=== PATIENT | female | born 1990 | race Caucasian/White ===

== ENCOUNTER 2023-04-12 23:24 | Emergency (ER) | payer OTHER ==
[2023-04-12 23:34] VITALS: BP 111/61; PULSE 77; RESP 16; TEMP 98.5; BMI 32.0
== END 2023-04-13 01:23 | disposition home or self-care (01) ==
LOC: JERFT 23:24
DX: R05.9 Cough, unspecified (principal); R09.89 Other specified symptoms and signs involving the circulatory and respiratory systems; R50.9 Fever, unspecified; U07.1 COVID-19
CPT/HCPCS: 0241U-QW; 71046-TC-FY; 99284-25

== ENCOUNTER 2024-01-28 14:49 | Emergency (ER) | payer OTHER ==
[2024-01-28 15:06] VITALS: BMI 32.3
[2024-01-28] MEDS ORDERED: ACETAMINOPHEN INJECTION 100 ML ONE (16:21)
[2024-01-28] MEDS: ACETAMINOPHEN 1000 MG/100 ML BAG IVPB ONE (16:48)
[2024-01-28 17:01] LABS: HCG,QUALITATIVE URINE Negative
[2024-01-28 17:04] LABS: EPI CELLS 13 /uL (0-25.1); HYALINE CASTS 1 /uL (0-3.1); URINE APPEARANCE CLOUDY; URINE BACTERIA 7 /uL (0-1359); URINE BILIRUBIN NEGATIVE (NEGATIVE); URINE COLOR YELLOW; URINE GLUCOSE (UA) NEGATIVE (NEGATIVE); URINE KETONE TRACE (NEGATIVE); URINE LEUK ESTERASE NEGATIVE (NEGATIVE); URINE NITRITE NEGATIVE (NEGATIVE); URINE PROTEIN NEGATIVE (NEGATIVE); URINE RBC 7 /uL (0-23.9); URINE WBC 10 /uL (0-25.8)
[2024-01-28] MEDS ORDERED: MORPHINE SULFATE 2 MG/ML SYRINGE ONE (17:51)
[2024-01-28] MEDS: morphine CARPU-JECT 2 MG/1 ML DISP.SYRIN IVPUSH ONE (17:58)
[2024-01-28 18:08] LABS: ALBUMIN 3.5 g/dl (3.4-5.0); BLOOD UREA NITROGEN 10.5 mg/dL (7-18); CALCIUM 8.9 mg/dL (8.5-10.1)
[2024-01-28 18:10] LABS: BASO % 0.5 % (0-2.0); HEMOGLOBIN 10.6 GM/dL (10.7-15.3); LYMPH % 40.6 % (8-40); MCH 26.4 pg (25.7-33.7); MCHC 33.2 g/dl (32.0-36.0); MEAN CELL VOLUME 79.5 fl (80-96); MEAN PLT VOLUME 8.4 fl (7.5-11.1); MONO % 7.9 % (3.8-10.2); PLATELET COUNT 351 10^3/uL (134-434); RBC 4.03 M/mm3 (3.60-5.2); RDW 16.8 % (11.6-15.6)
[2024-01-28 18:12] LABS: BILIRUBIN,TOTAL 0.2 mg/dL (0.2-1); CREATININE 0.5 mg/dL (0.55-1.3); TOT PROT 6.8 g/dl (6.4-8.2)
[2024-01-28 18:16] LABS: HIV INTERPRETATION NEGATIVE (NEGATIVE)
[2024-01-28 19:40] VITALS: RESP 18; TEMP 97.5
[2024-01-28] MEDS ORDERED: KETOROLAC TROMETHAMINE 15 MG/ML VIAL ONE (19:40)
[2024-01-28] MEDS: KETOROLAC TROMETHAMINE 15 MG/ML VIAL IVPUSH ONE (19:40)
[2024-01-28 21:51] VITALS: BP 123/67; PULSE 52
== END 2024-01-28 21:55 | disposition home or self-care (01) ==
LOC: JER 14:49
PROC: 3E033NZ Introduction of Analgesics, Hypnotics, Sedatives into Peripheral Vein, Percutaneous Approach (ICD-10-PCS; principal; 2024-01-28)
PROC: 3E033GC Introduction of Other Therapeutic Substance into Peripheral Vein, Percutaneous Approach (ICD-10-PCS; 2024-01-28)
PROC: 3E0333Z Introduction of Anti-inflammatory into Peripheral Vein, Percutaneous Approach (ICD-10-PCS; 2024-01-28)
PROC: 3E033NZ Introduction of Analgesics, Hypnotics, Sedatives into Peripheral Vein, Percutaneous Approach (ICD-10-PCS; 2024-01-28)
DX: S10.83XA Contusion of other specified part of neck, initial encounter (principal); S80.02XA Contusion of left knee, initial encounter; M54.6 Pain in thoracic spine; R68.84 Jaw pain; M25.511 Pain in right shoulder; R07.9 Chest pain, unspecified; Y04.0XXA Assault by unarmed brawl or fight, initial encounter
CPT/HCPCS: 36415; 70450-TC; 70486-TC; 71046-TC-FY; 72070-TC-FY; 72125-TC; 73030-TC-RT-FY; 80053; 81003; 84703; 85025; 86803; 87077; 87086; 87389; 93005; 93010; 99285-25; J0131

== ENCOUNTER 2024-07-28 06:43 | Day surgery (SDC) | payer OTHER ==
[2024-07-28 06:50] VITALS: BMI 29.4
[2024-07-28 07:25] LABS: ABSOLUTE IMMATURE GRANULOCYTES 0.02 x10^3/uL (0.0-0.031); BASOPHILS # 0.04 x10^3/uL (0.01-0.08); EOSINOPHIL % 2.2 % (0.7-5.8); EOSINOPHILS # 0.15 x10^3/uL (0.04-0.36); HEMATOCRIT 32.5 % (34.1-44.9); HEMOGLOBIN 9.9 g/dL (11.2-15.7); MCHC 30.5 g/dl (32.2-35.5); MEAN CELL VOLUME 79.3 fl (79.4-94.8); MEAN PLT VOLUME 10.6 fl (9.4-12.3); MONOCYTE # 0.37 x10^3/uL (0.24-0.86); MONOCYTE % 5.3 % (4.7-12.5); PLATELET COUNT 315 x10^3/uL (182-369)
[2024-07-28 07:49] LABS: POTASSIUM 3.8 mmol/L (3.5-5.1)
[2024-07-28 07:51] LABS: CALCIUM 9.5 mg/dL (8.5-10.1)
[2024-07-28 07:52] LABS: ALBUMIN 3.9 g/dl (3.4-5.0); BLOOD UREA NITROGEN 11.4 mg/dL (7-18); MAGNESIUM 2.2 mg/dL (1.8-2.4)
[2024-07-28 07:55] LABS: CREATININE 0.6 mg/dL (0.55-1.3)
[2024-07-28 07:56] LABS: BILIRUBIN,TOTAL 0.2 mg/dL (0.2-1)
[2024-07-28 07:57] LABS: TOT PROT 7.3 g/dl (6.4-8.2)
[2024-07-28 08:00] LABS: INR 1.09 (0.83-1.09)
[2024-07-28 08:03] LABS: ACTIVATED PTT 27.4 SECONDS (25.2-36.5)
[2024-07-28 09:14] LABS: ABSOLUTE IMMATURE GRANULOCYTES 0.02 x10^3/uL (0.0-0.031); BASOPHILS # 0.03 x10^3/uL (0.01-0.08); EOSINOPHIL % 1.7 % (0.7-5.8); EOSINOPHILS # 0.11 x10^3/uL (0.04-0.36); HEMATOCRIT 29.4 % (34.1-44.9); MCHC 30.6 g/dl (32.2-35.5); MONOCYTE # 0.42 x10^3/uL (0.24-0.86); MONOCYTE % 6.5 % (4.7-12.5); PLATELET COUNT 271 x10^3/uL (182-369)
[2024-07-28 12:51] LABS: ABSOLUTE IMMATURE GRANULOCYTES 0.01 x10^3/uL (0.0-0.031); BASOPHILS # 0.03 x10^3/uL (0.01-0.08); EOSINOPHIL % 1.6 % (0.7-5.8); EOSINOPHILS # 0.09 x10^3/uL (0.04-0.36); HEMATOCRIT 30.6 % (34.1-44.9); HEMOGLOBIN 9.3 g/dL (11.2-15.7); MCHC 30.4 g/dl (32.2-35.5); MEAN CELL VOLUME 78.9 fl (79.4-94.8); MEAN PLT VOLUME 10.5 fl (9.4-12.3); MONOCYTE # 0.33 x10^3/uL (0.24-0.86); MONOCYTE % 5.9 % (4.7-12.5); PLATELET COUNT 298 x10^3/uL (182-369)
[2024-07-28 12:54] LABS: EPI CELLS 14 /uL (0-25.1); HYALINE CASTS 2 /uL (0-3.1); PH,URINE 6.5 (5.0-8.0); URINE APPEARANCE CLOUDY; URINE BILIRUBIN NEGATIVE (NEGATIVE); URINE COLOR YELLOW; URINE GLUCOSE (UA) NEGATIVE (NEGATIVE); URINE KETONE TRACE (NEGATIVE); URINE LEUK ESTERASE NEGATIVE (NEGATIVE); URINE NITRITE NEGATIVE (NEGATIVE); URINE PROTEIN 1+ (NEGATIVE); URINE RBC 810 /uL (0-23.9)
[2024-07-28 12:59] LABS: URINE WBC 330 /uL (0-25.8)
[2024-07-28 13:00] LABS: URINE BACTERIA 174 /uL (0-1359)
[2024-07-28] MEDS ORDERED: LIDOCAINE HCL/PF 2% SDV 5ML VIAL ONE (13:39)
[2024-07-28] MEDS ORDERED: PROPOFOL 20 ML ONE (13:39)
[2024-07-28] MEDS ORDERED: MIDAZOLAM HCL 2 MG/2 ML SINGLE DOSE VIAL ONE (13:40)
[2024-07-28] MEDS ORDERED: ROCURONIUM BROMIDE 50 MG/5 ML SYRINGE ONE (13:40)
[2024-07-28] MEDS ORDERED: SUCCINYLCHOLINE CHLORIDE 200 MG/10 ML SYRINGE ONE (13:41)
[2024-07-28] MEDS: DOXYCYCLINE HYCLATE 100 MG VIAL IVPB ONE (14:11)
[2024-07-28] MEDS: DOXYCYCLINE INJECTION 100 MG in DEXTROSE 5%-WATER 100 ML IVPB ONE (14:23)
[2024-07-28] MEDS ORDERED: ONDANSETRON 4 MG/2 ML VIAL ONE (14:41)
[2024-07-28] MEDS: ONDANSETRON 4 MG/2 ML VIAL IVPUSH PRN (14:44)
[2024-07-28] MEDS: LACTATED RINGERS SOLUTION 1,000 ML IV SCH (16:16)
[2024-07-28] MEDS: METHYLERGONOVINE MALEATE 0.2 MG/1 ML AMP IM STA (16:25)
[2024-07-28 17:21] VITALS: RESP 18
[2024-07-28] MEDS: DOXYCYCLINE HYCLATE 100 MG CAPSULE PO SCH (18:30)
[2024-07-28] MEDS: ACETAMINOPHEN 325 MG TABLET (FP) PO PRN (18:30)
[2024-07-28] MEDS: IBUPROFEN 600 MG TABLET (FP) PO PRN (19:27)
[2024-07-28 20:33] LABS: HEMATOCRIT 29.2 % (34.1-44.9); HEMOGLOBIN 8.9 g/dL (11.2-15.7); MCHC 30.5 g/dl (32.2-35.5); MEAN CELL VOLUME 78.7 fl (79.4-94.8); MEAN PLT VOLUME 10.5 fl (9.4-12.3); PLATELET COUNT 264 x10^3/uL (182-369); RDW 15.9 % (12.1-16.8)
[2024-07-29 08:32] VITALS: BP 110/62; PULSE 70; TEMP 97.9
[2024-07-29 10:41] LABS: HEMATOCRIT 24.6 % (34.1-44.9); HEMOGLOBIN 7.5 g/dL (11.2-15.7); MCHC 30.5 g/dl (32.2-35.5); MEAN CELL VOLUME 78.8 fl (79.4-94.8); MEAN PLT VOLUME 10.8 fl (9.4-12.3); PLATELET COUNT 268 x10^3/uL (182-369); RDW 16.3 % (12.1-16.8)
== END 2024-07-29 12:45 | disposition home or self-care (01) ==
LOC: JER 06:43 → JERBED 12:36 → UNDOADMIN 12:36 → JASUSAT 13:42 → J3W 17:42 → JASUSAT 07-29 12:45
PROVIDERS: ATTEND Obstetrics & Gynecology Obstetrics
PROC: 10D17ZZ Extraction of Products of Conception, Retained, Via Natural or Artificial Opening (ICD-10-PCS; principal; 2024-07-28 13:30)
DX: O03.4 Incomplete spontaneous abortion without complication (principal)
CPT/HCPCS: 36415; 76817-TC; 80053; 81003; 83735; 84702; 85025; 85027; 85610; 85730; 86922; 87086; 88305-TC; 93005; 93010; 94010; 94760; 99285-25

== ENCOUNTER 2024-07-31 02:33 | Observation (INO) | payer OTHER ==
[2024-07-31] MEDS ORDERED: ONDANSETRON 4 MG/2 ML VIAL ONE (02:51)
[2024-07-31] MEDS ORDERED: KETOROLAC TROMETHAMINE 15 MG/ML VIAL ONE (02:51)
[2024-07-31] MEDS: ONDANSETRON 4 MG/2 ML VIAL IVPUSH ONE (02:55)
[2024-07-31] MEDS: KETOROLAC TROMETHAMINE 15 MG/ML VIAL IVPUSH ONE (02:55)
[2024-07-31 03:07] LABS: HEMOGLOBIN 6.7 g/dL (11.2-15.7)
[2024-07-31 03:17] LABS: ABSOLUTE IMMATURE GRANULOCYTES 0.06 x10^3/uL (0.0-0.031); BASOPHILS # 0.05 x10^3/uL (0.01-0.08); EOSINOPHIL % 1.4 % (0.7-5.8); EOSINOPHILS # 0.09 x10^3/uL (0.04-0.36); HEMATOCRIT 21.8 % (34.1-44.9); MCHC 30.7 g/dl (32.2-35.5); MEAN CELL VOLUME 79.6 fl (79.4-94.8); MEAN PLT VOLUME 10.5 fl (9.4-12.3); MONOCYTE # 0.31 x10^3/uL (0.24-0.86); PLATELET COUNT 269 x10^3/uL (182-369); RDW 16.5 % (12.1-16.8)
[2024-07-31 03:18] LABS: POTASSIUM 3.4 mmol/L (3.5-5.1)
[2024-07-31 03:19] LABS: INR 1.01 (0.83-1.09); PROTHROMBIN TIME (PATIENT) 11.1 SEC (9.7-13.0)
[2024-07-31 03:20] LABS: CALCIUM 8.6 mg/dL (8.5-10.1)
[2024-07-31 03:21] LABS: ACTIVATED PTT 26.3 SECONDS (25.2-36.5)
[2024-07-31 03:22] LABS: ALBUMIN 3.3 g/dl (3.4-5.0); BLOOD UREA NITROGEN 11.3 mg/dL (7-18); MAGNESIUM 2.1 mg/dL (1.8-2.4)
[2024-07-31 03:24] LABS: CREATININE 0.5 mg/dL (0.55-1.3)
[2024-07-31 03:25] LABS: BILIRUBIN,TOTAL 0.2 mg/dL (0.2-1); TOT PROT 6.1 g/dl (6.4-8.2)
[2024-07-31 07:55] LABS: ABSOLUTE IMMATURE GRANULOCYTES 0.04 x10^3/uL (0.0-0.031); BASOPHILS # 0.04 x10^3/uL (0.01-0.08); EOSINOPHIL % 1.3 % (0.7-5.8); EOSINOPHILS # 0.11 x10^3/uL (0.04-0.36); HEMATOCRIT 24.7 % (34.1-44.9); HEMOGLOBIN 7.8 g/dL (11.2-15.7); MCHC 31.6 g/dl (32.2-35.5); MEAN CELL VOLUME 82.1 fl (79.4-94.8); MEAN PLT VOLUME 10.1 fl (9.4-12.3); MONOCYTE # 0.42 x10^3/uL (0.24-0.86); MONOCYTE % 4.9 % (4.7-12.5); PLATELET COUNT 229 x10^3/uL (182-369); RDW 16.8 % (12.1-16.8)
[2024-07-31] MEDS ORDERED: IBUPROFEN 600 MG TABLET (FP) PO PRN (13:54)
[2024-07-31] MEDS: DOXYCYCLINE HYCLATE 100 MG TABLET PO ONE (14:26)
[2024-07-31 14:49] VITALS: BP 109/69; PULSE 71; RESP 20; TEMP 97.9
[2024-07-31 15:07] VITALS: BMI 29.1
[2024-07-31 15:29] LABS: ABSOLUTE IMMATURE GRANULOCYTES 0.04 x10^3/uL (0.0-0.031); BASOPHILS # 0.03 x10^3/uL (0.01-0.08); EOSINOPHIL % 1.6 % (0.7-5.8); EOSINOPHILS # 0.11 x10^3/uL (0.04-0.36); HEMATOCRIT 27.8 % (34.1-44.9); HEMOGLOBIN 8.9 g/dL (11.2-15.7); MEAN CELL VOLUME 80.3 fl (79.4-94.8); MEAN PLT VOLUME 10.2 fl (9.4-12.3); MONOCYTE # 0.38 x10^3/uL (0.24-0.86); MONOCYTE % 5.6 % (4.7-12.5); PLATELET COUNT 223 x10^3/uL (182-369); RDW 15.2 % (12.1-16.8)
== END 2024-07-31 18:25 | disposition home or self-care (01) ==
LOC: JER 02:33 → JERBED 07:36 → J7W 09:32
PROVIDERS: ADMIT Student in an Organized Health Care Education/Training Program; ATTEND Student in an Organized Health Care Education/Training Program
PROC: 3E033GC Introduction of Other Therapeutic Substance into Peripheral Vein, Percutaneous Approach (ICD-10-PCS; principal; 2024-07-31)
PROC: 3E0333Z Introduction of Anti-inflammatory into Peripheral Vein, Percutaneous Approach (ICD-10-PCS; 2024-07-31)
PROC: 30233N1 Transfusion of Nonautologous Red Blood Cells into Peripheral Vein, Percutaneous Approach (ICD-10-PCS; 2024-07-31)
DX: O02.0 Blighted ovum and nonhydatidiform mole (principal); N93.9 Abnormal uterine and vaginal bleeding, unspecified; D64.9 Anemia, unspecified
CPT/HCPCS: 36415; 36430; 36511; 80053; 83735; 84702; 85025; 85610; 85730; 86850; 86900; 86901; 86922; 96374; 96375; 99285-25; G0378; P9038; P9058